=== PATIENT | male | born 1990 | race Caucasian/White ===

== ENCOUNTER 2018-05-26 11:24 | Emergency (ER) | payer SELFPAY ==
[~2018-05-26] VITALS: Ht 180.3 cm; Wt 81.8 kg
[2018-05-26 12:02] LABS: EOS # 0.2 (0.04-0.40); EOS % 2.6 % (0.0-4.0); HEMATOCRIT 47.6 % (42.0-52.0); HEMOGLOBIN 16.4 g/dL (13.5-18.0); LYMPH# 2.8 (1.50-4.00); MEAN CELL VOLUME 85 fl (78-100); MEAN CORPUSCULAR HEMOGLOBIN 29 pg (27-31); MEAN CORPUSCULAR HGB CONC 35 g/dL (33-37); MEAN PLATELET VOLUME 9.7 fl (7.4-10.4); MONO # 0.8 (0.20-0.80); NEU # 4.2 (1.40-6.50); PLATELET COUNT 352 K/mm3 (130-400); RED BLOOD COUNT 5.58 M/mm3 (4.20-5.60); RED CELL DISTRIBUTION WIDTH 12.3 % (11.5-14.5); WHITE BLOOD COUNT 8.1 K/mm3 (4.8-10.8)
[2018-05-26 12:13] LABS: ALBUMIN 4.6 g/dL (3.5-5.0); CALCIUM 9.8 mg/dL (8.4-10.2); TOTAL BILIRUBIN 0.6 mg/dL (0.2-1.3); TOTAL PROTEIN 7.9 g/dL (6.3-8.2)
[2018-05-26 12:27] LABS: PH-URINE 5.5 (5.0 - 8.0); URINE APPEARANCE CLEAR; URINE BILIRUBIN NEGATIVE (NEGATIVE); URINE BLOOD 50 ery/uL (NEGATIVE); URINE COLOR YELLOW; URINE GLUCOSE NEGATIVE (NEGATIVE); URINE KETONE NEGATIVE (NEGATIVE); URINE LEUKOCYTE ESTERASE NEGATIVE (NEGATIVE); URINE MUCUS PRESENT (NOT PRESENT); URINE NITRATE NEGATIVE (NEGATIVE); URINE PROTEIN(semi-quant) NEGATIVE (NEGATIVE); URINE UROBILINOGEN NORMAL (NORMAL); URINE WBC 0-1 /hpf (0-3)
[2018-05-26] MEDS ORDERED: PERCOCET 325 MG1 TA2 PO (13:50)
[2018-05-26] MEDS ORDERED: SEPTRA DS 8001 TAB PO (13:50)
[2018-05-26] MEDS ORDERED: FLOMAX0.4 MG PO (13:50)
[2018-05-26 14:00] VITALS: BP 124/78
== END 2018-05-26 14:00 | disposition home or self-care (01) ==
LOC: ED 11:24
PROVIDERS: Family Medicine
DX: N23 Unspecified renal colic (principal)
CPT/HCPCS: J1885

== ENCOUNTER → 2019-03-31 | Day surgery (SDC) | payer OTHER ==
[~2019-03-31] MED LIST: FLOMAX0.4 MG PO; PERCOCET 325 MG1 TA2 PO; SEPTRA DS 8001 TAB PO
== END ==
LOC: MSO 07:09
DX: K52.9 Noninfective gastroenteritis and colitis, unspecified (principal); K92.1 Melena; Z80.0 Family history of malignant neoplasm of digestive organs; E78.00 Pure hypercholesterolemia, unspecified; Z87.891 Personal history of nicotine dependence; I10 Essential (primary) hypertension
CPT/HCPCS: 00811; J2704; J7120